=== PATIENT | female | born 1950 | race African-American/Black ===

== ENCOUNTER 2019-03-15 10:19 | Outpatient (CLI) | payer MEDICARE, MEDICAID | END 2019-03-15 12:19 | disposition home or self-care (01) | LOC: CAT 10:19 | DX: R31.9 Hematuria, unspecified (principal) | CPT/HCPCS: 74178 ==

== ENCOUNTER 2019-03-20 12:11 | Outpatient (CLI) | payer MEDICARE, MEDICAID ==
--- NOTE | 2019-03-20 14:35 | Diagnostic Imaging Report ---
Indication: Hematuria Technique: Continuous helical transaxial imaging of the abdomen and pelvis was obtained from the lung bases to the pubic symphysis during intravenous contrast administration. Coronal 2-D reformats were also obtained. Study obtained in a Siemens sensation [address] Automatic Exposure Control was utilized. Total Dose length Product (DLP): [address] Dose Index Volume (CTDIvol): 298.8 mGy Comparison: None Findings: The study was performed initially on 03/15/2019 and repeated 03/18/2019. The exam is limited by very large body habitus with resultant artifact due to beam starvation. There is no nephrolithiasis ducts are identified. There is a cyst in the lower pole the right kidney measuring 5.4 cm. There is no hydronephrosis. The bladder is mostly nondistended but grossly unremarkable. Few calcifications within the uterus likely represent fibroids. Cholecystectomy has been done. After contrast enhancement there is appropriate and symmetric enhancement of both kidneys. There is scarring in the midpole the right kidney noted. Aortoiliac calcifications are present. There is no free fluid. Bowel gas pattern is nonobstructive. There is a tiny umbilical hernia containing fat. There is narrowing of intervertebral discs and accompanying endplate osteophyte formation. Hypertrophied facet joints also demonstrated. There is a small posterior medial fat-containing hernia involving the diaphragm on the right side. IMPRESSION: 5.4 cm right parapelvic renal cyst. Post inflammatory/infectious scarring of the right kidney. No enhancing mass, stones or obstructive nephropathy identified. Atherosclerotic vascular disease. Small right posterior medial Bochdalek hernia. Tiny umbilical hernia containing fat. Uterine calcifications probably associated with fibroids. Degenerative changes of the lumbar spine. Status post cholecystectomy. Significantly limited evaluation due to body habitus. The CT scanner at [facility] is accredited by the [employer] and the scans are performed using protocols designed to limit radiation exposure to as low as reasonably achievable to attain images of sufficient resolution adequate for diagnostic evaluation.
== END 2019-03-20 14:11 | disposition home or self-care (01) ==
LOC: CAT 12:11
DX: R31.9 Hematuria, unspecified (principal); N28.1 Cyst of kidney, acquired; K42.9 Umbilical hernia without obstruction or gangrene; Z90.49 Acquired absence of other specified parts of digestive tract
CPT/HCPCS: 74178; Q9967